=== PATIENT | male | born 1945 | race Two or more races ===

== ENCOUNTER 2017-08-07 11:58 | Inpatient (IN) | payer MEDICARE, OTHER ==
[~2017-08-07] VITALS: Ht 165.1 cm; Wt 54.9 kg
[~2017-08-07 11:58] MED LIST: Aspirin PO; CLOP75TA15 PO; SIMV20TA2 PO
--- NOTE | 2017-08-07 12:45 | NUR ---
AAOX3, BIB FAMILY C/O LEFT LOWER EXTREMITY PAIN, 1-3 TOES GANGRENE. RR IS EVEN AND UNLABORED WITH NAD NOTED. SKIN IS WARM AND DRY. AWAITING MD FOR EVAL.
[2017-08-07] MEDS ORDERED: VANCOMYCIN 1 GM in IV D5W 250 ML IV ONE (13:00)
[2017-08-07] MEDS ORDERED: ONDANSETRON HCL/PF 4 MG/2 ML VIAL IV ONE (13:00)
[2017-08-07] MEDS ORDERED: IV NS 0.9% 1,000 ML BAG IV ONE (13:00)
[2017-08-07] MEDS ORDERED: MORPHINE SULFATE INJ 2 MG/ML DISP.SYRIN IV ONE (13:00)
[2017-08-07] MEDS ORDERED: PIPERACILLIN /TAZOBACTAM 3.375 G in IV D5W 50 ML IV ONE (13:00)
[2017-08-07 13:17] LABS: BASOPHILS % (AUTO) 0.4 % (0.0-2.0); EOSINOPHILS # (AUTO) 0.1 /CMM (0.0-0.7); EOSINOPHILS % (AUTO) 0.8 % (0.0-6.0); HEMATOCRIT 38 % (39-51); HEMOGLOBIN 12.8 g/dL (13.5-17.5); LYMPHOCYTES # (AUTO) 1.7 /CMM (0.8-4.8); LYMPHOCYTES % (AUTO) 20.9 % (20.0-44.0); MEAN CORPUSCULAR HEMOGLOBIN 31 PG (26.0-33.0); MEAN CORPUSCULAR HGB CONC 34 g/dl (31.0-36.0); MEAN CORPUSCULAR VOLUME 92 fL (80-96); MONOCYTES # (AUTO) 0.5 /CMM (0.1-1.30); NEUTROPHILS # (AUTO) 5.8 /CMM (1.8-8.9); NEUTROPHILS % (AUTO) 71.9 % (43.0-81.0); PLATELET COUNT (AUTO) 184 /CMM (150-450); RDW COEFFICIENT OF VARIATION 13.3 (11.5-15.0); WHITE BLOOD COUNT (AUTO) 8.1 K/uL (4.3-11.0)
[2017-08-07 13:35] LABS: ALBUMIN 2.7 g/dL (3.4-5.0); BILIRUBIN,DIRECT 0.1 mg/dL (0.0-0.2); BILIRUBIN,TOTAL 0.4 mg/dL (0.2-1.0); TOTAL PROTEIN, SERUM 7.2 g/dL (6.4-8.2)
[2017-08-07 13:37] LABS: CALCIUM, SERUM 8.8 mg/dL (8.5-10.1); CARBON DIOXIDE 28 mmol/L (21-32); CHLORIDE 98 mmol/L (98-107); CREATININE 1.4 mg/dL (0.6-1.3); POTASSIUM 4.8 mmol/L (3.5-5.1); SODIUM SERUM 134 mmol/L (136-145); UREA NITROGEN, BLOOD 34 mg/dL (7-18)
[2017-08-07] MEDS ORDERED: MORPHINE SULFATE INJ 4 MG/ML DISP.SYRIN ONE (13:39)
[2017-08-07] MEDS ORDERED: ONDANSETRON HCL/PF 4 MG/2 ML VIAL ONE (13:39)
[2017-08-07] MEDS ORDERED: INSU10VI3 SQ ×2 (13:45)
[2017-08-07] MEDS ORDERED: ERGO500014 PO (13:45)
[2017-08-07] MEDS ORDERED: ACET-2605 PO (13:45)
[2017-08-07] MEDS ORDERED: ASPI-992 PO (13:45)
--- NOTE | 2017-08-07 13:45 | NUR ---
CALLED [employer] TECHNOLOGIES MANAGER WATER WAS PAGED.
[2017-08-07 13:48] LABS: INR 0.98 (0.87-1.13)
--- NOTE | 2017-08-07 14:00 | NUR ---
DR HUNTLEY DOESN'T WANT TO ORDER BLOOD DRAW FOR BLOOD CULTURE PRIOR TO ANTIBIOTIC ADMINISTRATION.
[2017-08-07 14:12] LABS: GLUCOSE 584 mg/dL (74-106)
[2017-08-07] MEDS ORDERED: INSULIN REGULAR, HUMAN 100 UNIT/ML 10 ML VIAL IV ONE (14:30)
[2017-08-07] MEDS ORDERED: INSULIN REGULAR, HUMAN 100 UNIT/ML 10 ML VIAL ONE (14:35)
--- NOTE | 2017-08-07 14:46 | NUR ---
REPORT GIVEN TO JOSE PARK FOR ELIDIA MS [id number]
[2017-08-07] MEDS ORDERED: ZOLPIDEM TARTRATE 5 MG TABLET PO PRN (15:30)
[2017-08-07] MEDS ORDERED: DEXTROSE 50%-WATER 50 ML DISP.SYRIN IV PRN (15:30)
[2017-08-07] MEDS ORDERED: MAGNESIUM HYDROXIDE 30 ML UDC PO PRN (15:30)
[2017-08-07] MEDS ORDERED: *INSULIN REGULAR(HUMULIN R)HUM 100 UNIT/ML VIAL SQ PRN (15:30)
[2017-08-07] MEDS ORDERED: MAG HYDROX/AL HYDROX/SIMETH 30 ML UDC PO PRN (15:30)
[2017-08-07] MEDS ORDERED: ONDANSETRON HCL/PF 4 MG/2 ML VIAL IVP PRN (15:30)
[2017-08-07] MEDS ORDERED: Z GUARD REMEDY 2 OZ OINT TP PRN (15:30)
--- NOTE | 2017-08-07 15:30 | NUR ---
MS/RN OPENING NOTE. PATIENT IN BED AWAKE. ALERT AND ORIENTED X4. DENIES SOB, PAIN AT THIS TIME. BREATHING REGULAR AND UNLABORED. IN NO APPARENT DISTRESS. SKIN ASSESSMENT DONE AND PICTURES TAKEN. BED LOW AND LOCKED. SIDE RAILS UP X3. CALL LIGHT WITHIN REACH. WILL CONTINUE TO MONITOR.
[2017-08-07 16:00] VITALS: BP 174/81
[2017-08-07] MEDS ORDERED: ERGOCALCIFEROL (VITAMIN D 2) 50,000 UNIT CAPSULE PO SCH (16:00)
[2017-08-07] MEDS: HYDROCODONE/APAP 5/325MG 1 EACH TABLET PO PRN (17:07)
[2017-08-07] MEDS: BLOOD SUGAR DIAGNOSTIC 1 EACH STRIP IN SCH ×3 (17:08→22:13)
[2017-08-07] MEDS: ASPIRIN 325 MG TABLET PO SCH (17:08)
--- NOTE | 2017-08-07 17:30 | NUR ---
MS/RN NOTE 1730 BLOOD SUGAR CHECK PATIENT REFUSED DUE TO 1710 BLOOD SUGAR CHECK ALREADY DONE AND COVERAGE GIVEN PER ORDER. NO ASE NOTED.
[2017-08-07] MEDS: INSULIN REGULAR, HUMAN 100 UNIT/ML 3 ML VIAL SQ PRN (17:42)
--- NOTE | 2017-08-07 18:19 | NUR ---
MS/RN CLOSING NOTE PATIENT ALERT AND ORIENTED X4. ITALIAN SPEAKER. DENIES SOB AT THIS TIME. RESPIRATION REGULAR AND UNLABORED. DENIES PAIN AT THIS TIME. PAIN MEDICATION GIVEN ORDERED AND THE PATIENT VERBALIZED THE PAIN MEDICATION BEING EFFECTIVE. ZAHRA Uribe 20 PATENT. BED LOW AND LOCKED. SIDE RAILS UP X2. CALL LIGHT WITHIN REACH. WILL ENDORSE TO CUSTODIAN ATHLETIC EQUIPMENT.
[2017-08-07] MEDS: IV NS 0.9% 1,000 ML IV PRN (19:13)
--- NOTE | 2017-08-07 19:35 | NUR ---
MS RN OPENING NOTES RECEIVED PATIENT RESTING IN BED. BARBADIAN SPEAKING, A & O X 4. NO C/O PAIN, NO SOB, NO ACUTE DISTRESS NOTED @ THIS TIME. CONTINENT OF B & BM, USES BSC. DRESSING INTACT TO LEFT FOOT, NO DRAINAGE NOTED. IV ACCESS TO RAC, INTACT PATENT, RUNNING WITH NS @ 75 ML/HR. ON CCHO DIET, TOLERATING WELL. BED IN LOW LOCKED POSITION. CALL LIGHT WITHIN REACH. WILL CONTINUE TO MONITOR CLOSELY.
[2017-08-07] MEDS ORDERED: FEE PK DOSING 1 MIN EA MC ONE (19:44)
[2017-08-07 20:00] VITALS: BP 151/62
[2017-08-07] MEDS: INSULN 70/30 ASP+PRT/ASP MIX 100 UNIT/ML CARTRIDGE SQ SCH (20:00)
[2017-08-07] MEDS: CEFTRIAXONE 1 G in IV NS 0.9% 50 ML IV SCH (20:57)
[2017-08-07] MEDS: ACETAMINOPHEN 325 MG TABLET PO PRN (21:01)
--- NOTE | 2017-08-07 21:01 | NUR ---
PRN TYLENOL GIVEN PATIENT C/O LEFT LOWER EXTREMITY PAIN 08/15, SEEN BY POWER PLANT INSTALLER WITH NEW WOUND TREATMENT ORDER. PRN TYLENOL GIVEN, WILL REASSESS FOR THE EFFECTIVENESS.
--- NOTE | 2017-08-07 21:07 | NUR ---
HELD SCHEDULED INSULIN PATIENT'S BS LEVEL NOTED TO BE 59MG/DL, HELD INSULIN, ORANGE JUICE GIVEN. MD MADE AWARE. WILL RECHECK THE BS LEVEL.
--- NOTE | 2017-08-07 21:35 | NUR ---
RECHECKED BS LEVEL BS LEVEL WAS RECHECKED, NOTED TO BE 104MG/DL. PT IS A & O X 4, NO COMPLICATIONS NOTED. CONTINUING TO MONITOR.
[2017-08-08] MEDS ORDERED: VANCOMYCIN 500 MG in IV D5W 100 ML IV SCH (03:00)
--- NOTE | 2017-08-08 06:22 | NUR ---
MS RN CLOSING NOTES RECEIVED SLEEPING IN BED. YORUBA SPEAKING, A & O X 4. NO C/O PAIN, NO SOB, NO ACUTE DISTRESS NOTED @ THIS TIME. CONTINENT OF B & BM, USES BSC/URINAL. SEEN BY WHARF LABOURER @ NIGHT WITH NEW ORDER. DRESSING INTACT TO LEFT FOOT, NO DRAINAGE NOTED. IV ACCESS TO RAC, INTACT PATENT, RUNNING WITH NS @ 75 ML/HR. ALL NEEDS MET. BED IN LOW LOCKED POSITION. CALL LIGHT WITHIN REACH. WILL ENDORSE TO AM RN FOR CONTINUITY OF CARE.
[2017-08-08] MEDS: BLOOD SUGAR DIAGNOSTIC 1 EACH STRIP IN SCH ×4 (06:37→21:52)
[2017-08-08] MEDS: IV NS 0.9% 1,000 ML IV PRN ×2 (06:37→22:12)
[2017-08-08 06:54] LABS: BASOPHILS % (AUTO) 0.4 % (0.0-2.0); EOSINOPHILS # (AUTO) 0.2 /CMM (0.0-0.7); EOSINOPHILS % (AUTO) 2.7 % (0.0-6.0); HEMATOCRIT 34 % (39-51); HEMOGLOBIN 11.8 g/dL (13.5-17.5); LYMPHOCYTES # (AUTO) 1.9 /CMM (0.8-4.8); LYMPHOCYTES % (AUTO) 26.1 % (20.0-44.0); MEAN CORPUSCULAR HEMOGLOBIN 32 PG (26.0-33.0); MEAN CORPUSCULAR HGB CONC 35 g/dl (31.0-36.0); MEAN CORPUSCULAR VOLUME 91 fL (80-96); MONOCYTES # (AUTO) 0.5 /CMM (0.1-1.30); MONOCYTES % (AUTO) 6.8 % (2.0-12.0); NEUTROPHILS # (AUTO) 4.7 /CMM (1.8-8.9); PLATELET COUNT (AUTO) 147 /CMM (150-450); RDW COEFFICIENT OF VARIATION 13.9 (11.5-15.0); RED BLOOD CELL COUNT(AUTO) 3.71 MIL/uL (4.5-6.0); WHITE BLOOD COUNT (AUTO) 7.4 K/uL (4.3-11.0)
[2017-08-08] MEDS: INSULIN REGULAR, HUMAN 100 UNIT/ML 3 ML VIAL SQ PRN ×2 (07:05→12:13)
[2017-08-08 07:18] LABS: ALANINE AMINOTRANSFERASE 88 U/L (12-78); ALBUMIN 2.4 g/dL (3.4-5.0); ALKALINE PHOSPHATASE 79 U/L (46-116); ASPARTATE AMINOTRANSFERASE 68 U/L (15-37); BILIRUBIN,TOTAL 0.5 mg/dL (0.2-1.0); CALCIUM, SERUM 7.9 mg/dL (8.5-10.1); CARBON DIOXIDE 25 mmol/L (21-32); CHLORIDE 102 mmol/L (98-107); CREATININE 0.9 mg/dL (0.6-1.3); GLUCOSE 209 mg/dL (74-106); MAGNESIUM 1.4 mg/dL (1.8-2.4); PHOSPHORUS 3.4 mg/dL (2.5-4.9); SODIUM SERUM 135 mmol/L (136-145); TOTAL PROTEIN, SERUM 6.5 g/dL (6.4-8.2); UREA NITROGEN, BLOOD 19 mg/dL (7-18)
[2017-08-08 07:20] LABS: CHOLESTEROL 77 mg/dL (<200); HDL CHOLESTEROL 27 mg/dL (40-60); LDL 48 mg/dL (0-99); TRIGLYCERIDES 51 mg/dL (30-150)
--- NOTE | 2017-08-08 07:46 | NUR ---
RN OPENING NOTES RECEIVED PT. A/OX4, PT IS SLOVENIAN SPEAKING ONLY. NO S/S OF RESP DISTRESS OR SOB. PT HAS C/O PAIN 12/15, WILL ADDRESS PHARMACOLOGICALLY. PT TO HAVE WOUND CARE CONSULT FOR LEFT FOOT GANGRENE. IV ACCESS LOCATED ON RIGHT AC 20G INFUSING NS AT 75 ML/HR. SAFETY MEASURES IN PLACE, CALL LIGHT WITHIN REACH. WILL CONTINUE TO MONITOR.
[2017-08-08 08:00] VITALS: BP 188/89
[2017-08-08] MEDS: HYDROCODONE/APAP 5/325MG 1 EACH TABLET PO PRN ×2 (08:06→16:06)
[2017-08-08] MEDS: ASPIRIN 325 MG TABLET PO SCH (08:06)
[2017-08-08] MEDS: INSULN 70/30 ASP+PRT/ASP MIX 100 UNIT/ML CARTRIDGE SQ SCH ×2 (08:11→17:05)
[2017-08-08] MEDS: AMLODIPINE BESYLATE 10 MG TABLET PO SCH (10:41)
[2017-08-08] MEDS: Magnesium 1GM/D5W 100ML PREMIX 100 ML IV SCH ×4 (12:38→16:27)
--- NOTE | 2017-08-08 13:50 | NUR ---
RN NOTES RIGHT AC IV ACCESS PULLED OUT. NEW ACCESS STARTED ON LEFT FA, 22G.
[2017-08-08] MEDS: VANCOMYCIN 0.75 GM in IV D5W 250 ML IV SCH (15:47)
--- NOTE | 2017-08-08 17:45 | NUR ---
RN NOTES REGULAR INSULIN HELD, DUE TO HYPOGLYCEMIA EXPERIENCED AT NIGHT ON 08/07/17. SCHEDULED NOVOLOG 70/30 STILL GIVEN.
--- NOTE | 2017-08-08 18:34 | NUR ---
RN CLOSING NOTE PT IN BED RESTING. NO S/S OF RESP DISTRESS OR SOB. NO C/O PAIN AT THIS TIME. MAGNESIUM REPLACED VIA X3 BAGS IVPB. LEFT FOOT DRESSING REINFORCED, DRESSING REMAINS UNSOILED. ALL PT NEEDS ANTICIPATED AND MET, SAFETY MEASURES IN PLACE, CALL LIGHT WITHIN REACH. WILL ENDORSE TO FORENSIC SOCIAL WORKER FOR ELIDIA.
--- NOTE | 2017-08-08 19:12 | NUR ---
MS RN OPENING NOTES RECEIVED PATIENT RESTING IN BED WITH EYES CLOSED. SLOVAK SPEAKING, A & O X 4. NO C/O PAIN, NO SOB, NO ACUTE DISTRESS NOTED @ THIS TIME. CONTINENT OF B & BM, USES BSC/URINAL. DRESSING INTACT TO LEFT FOOT & RIGHT FOOT.NO DRAINAGE NOTED. IV ACCESS TO LFA, INTACT PATENT, RUNNING WITH NS @ 75 ML/HR. ON CCHO DIET, TOLERATING WELL. WILL MONITOR CLOSELY FOR HIGH BP SINCE PT HAD HIGH BP IN AM SHIFT.BED IN LOW LOCKED POSITION. CALL LIGHT WITHIN REACH. WILL CONTINUE TO MONITOR CLOSELY.
[2017-08-08] MEDS: CEFTRIAXONE 1 G in IV NS 0.9% 50 ML IV SCH (19:35)
[2017-08-08 20:00] VITALS: BP 151/86
[2017-08-08] MEDS: ACETAMINOPHEN 325 MG TABLET PO PRN (20:13)
--- NOTE | 2017-08-08 20:13 | NUR ---
PRN TYLENOL GIVEN PATIENT C/O LEFT LOWER EXTREMITY MILD PAIN 3/10, PRN TYLENOL GIVEN, WILL REASSESS FOR THE EFFECTIVENESS.
[2017-08-09] MEDS: VANCOMYCIN 0.75 GM in IV D5W 250 ML IV SCH ×2 (03:20→14:27)
[2017-08-09 06:39] LABS: CALCIUM, SERUM 8.2 mg/dL (8.5-10.1); CARBON DIOXIDE 28 mmol/L (21-32); CHLORIDE 107 mmol/L (98-107); CREATININE 0.9 mg/dL (0.6-1.3); GLUCOSE 157 mg/dL (74-106); MAGNESIUM 1.8 mg/dL (1.8-2.4); POTASSIUM 4.7 mmol/L (3.5-5.1); SODIUM SERUM 144 mmol/L (136-145); UREA NITROGEN, BLOOD 12 mg/dL (7-18)
[2017-08-09] MEDS: HYDROCODONE/APAP 5/325MG 1 EACH TABLET PO PRN ×2 (06:41→20:37)
--- NOTE | 2017-08-09 06:41 | NUR ---
MS RN CLOSING NOTES PT SLEPT WELL @ NIGHT, A & O X 4. HAD C/O PAIN TO LEFT LEG, PRN NORCO GIVEN. NO SOB, NO ACUTE DISTRESS NOTED @ THIS TIME. CONTINENT OF B & BM, USES BSC/URINAL. DRESSING INTACT TO LEFT FOOT, NO DRAINAGE NOTED. IV ACCESS TO RAC, INTACT PATENT, RUNNING WITH NS @ 75 ML/HR. ALL NEEDS MET. BED IN LOW LOCKED POSITION. CALL LIGHT WITHIN REACH. WILL ENDORSE TO AM RN FOR CONTINUITY OF CARE.
[2017-08-09] MEDS: BLOOD SUGAR DIAGNOSTIC 1 EACH STRIP IN SCH ×4 (07:30→20:38)
--- NOTE | 2017-08-09 07:54 | NUR ---
RN OPENING NOTES RECEIVED PT. PT STABLE AND SLEEPING IN BED. NO S/S OF RESP DISTRESS OR SOB. BILATERAL FEET DRESSINGS INTACT AND UNSOILED. IV ACCESS LOCATED ON LEFT FA 22G INFUSING NS AT 75 ML/HR. AM INSULIN COVERAGE HELD, PT HAS NOT EATEN MEALS OR CONSUMED FLUIDS. SAFETY MEASURES IN PLACE, CALL LIGHT WITHIN REACH. WILL CONTINUE TO MONITOR.
[2017-08-09 08:17] VITALS: BP 163/81
[2017-08-09] MEDS: ASPIRIN 325 MG TABLET PO SCH (08:29)
[2017-08-09] MEDS: AMLODIPINE BESYLATE 10 MG TABLET PO SCH (08:29)
[2017-08-09] MEDS: INSULN 70/30 ASP+PRT/ASP MIX 100 UNIT/ML CARTRIDGE SQ SCH ×2 (09:00→17:04)
[2017-08-09] MEDS: INSULIN REGULAR, HUMAN 100 UNIT/ML 3 ML VIAL SQ PRN ×3 (12:39→20:52)
[2017-08-09 16:04] VITALS: BP 115/64
--- NOTE | 2017-08-09 19:16 | NUR ---
RN CLOSING NOTES PT IN BED RESTING. NO S/S OF RESP DISTRESS OR SOB. ALL PT NEEDS ANTICIPATED AND MET. SAFETY MEASURES IN PLACE CALL LIGHT WITHIN REACH. WILL ENDORSE TO ICE CREAM SCOOPER FOR ELIDIA.
--- NOTE | 2017-08-09 19:30 | NUR ---
MS RN NOTE RECEIVED PT. PT STABLE AND SLEEPING IN BED. NO S/S OF RESP DISTRESS OR SOB. BILATERAL FEET DRESSINGS INTACT AND UNSOILED. IV ACCESS LOCATED ON LEFT FA 22G INFUSING NS AT 75 ML/HR. SAFETY MEASURES IN PLACE, CALL LIGHT WITHIN REACH. WILL CONTINUE TO MONITOR.
[2017-08-09 20:00] VITALS: BP 154/89
[2017-08-09] MEDS: CEFTRIAXONE 1 G in IV NS 0.9% 50 ML IV SCH (20:37)
[2017-08-09 22:00] VITALS: BP 154/89
[2017-08-10] MEDS: VANCOMYCIN 500 MG in IV NS 0.9% 100 ML IV SCH ×2 (03:00→15:21)
--- NOTE | 2017-08-10 04:29 | NUR ---
MS RN NOTE VANCO TROUGH 22. NOTIFIED ON-CALL PHARMACIST, BANDAR. PER BANDAR, HOLD VANCO DOSE AT THIS TIME. WILL CONTINUE TO MONITOR.
--- NOTE | 2017-08-10 06:54 | NUR ---
ms rn note Patient stable . Wound care provided. Pictures taken and placed in chart. Blood sugar 160. Sliding scale given as ordered.Will endorse to day shift for freddy.
[2017-08-10] MEDS: INSULIN REGULAR, HUMAN 100 UNIT/ML 3 ML VIAL SQ PRN ×3 (07:08→18:21)
[2017-08-10] MEDS: BLOOD SUGAR DIAGNOSTIC 1 EACH STRIP IN SCH ×3 (07:09→18:12)
--- NOTE | 2017-08-10 07:17 | NUR ---
MS RN OPENING NOTES RECEIVED PT FROM NIGHTSHIFT NURSE IN STABLE CONDITION. PT IS A/O X4. NO SOB OR SIGNS OF DISTRESS NOTED. BREATHING IS EVEN AND UNLABORED. HE ADMITS TO MINIMAL PAIN AT THIS TIME, BUT STATES HE DOES NOT NEED PAIN MEDICATION. WOUND DRESSING CLEAN DRY, AND INTACT. IV NOTED TO BE PATENT AND INTACT. NO REDNESS OR SIGNS OF INFILTRATION NOTED. BED IN LOW LOCKED POSITION, SIDE RAILS UP X2, CALL LIGHT WITHIN REACH. WILL CONTINUE TO MONITOR
[2017-08-10 07:59] LABS: CALCIUM, SERUM 8.7 mg/dL (8.5-10.1); CARBON DIOXIDE 26 mmol/L (21-32); CHLORIDE 100 mmol/L (98-107); CREATININE 0.9 mg/dL (0.6-1.3); GLUCOSE 181 mg/dL (74-106); POTASSIUM 4.7 mmol/L (3.5-5.1); SODIUM SERUM 136 mmol/L (136-145); UREA NITROGEN, BLOOD 12 mg/dL (7-18)
[2017-08-10 08:00] VITALS: BP 159/80
[2017-08-10] MEDS: HYDROCODONE/APAP 5/325MG 1 EACH TABLET PO PRN ×2 (08:40→18:12)
[2017-08-10] MEDS: ASPIRIN 325 MG TABLET PO SCH (08:41)
[2017-08-10] MEDS: AMLODIPINE BESYLATE 10 MG TABLET PO SCH (08:41)
[2017-08-10] MEDS: INSULN 70/30 ASP+PRT/ASP MIX 100 UNIT/ML CARTRIDGE SQ SCH ×2 (09:36→18:16)
--- NOTE | 2017-08-10 12:20 | NUR ---
WOUND CARE CONSULT: PT FOLLOWED BY PODIATRY FOR LOWER EXTREMITIES. RT FOOT DRESSING DRY AND INTACT. DRY GANGRENE NOTED TO LEFT TOES, PRESENT ON ADMISSION. DEFER TO PODIATRY. PT ABLE TO TURN SELF IN BED. WILL SEE PRN. DISCUSSED SKIN PROTECTION WITH NURSING STAFF. WILL SEE PRN. MD IN AGREEMENT WITH PLAN OF CARE.
[2017-08-10 16:00] VITALS: BP 130/67
--- NOTE | 2017-08-10 19:30 | NUR ---
ms rn note Patient discharged home with in vehicle. Patient stable. Dressing clean, dry and intact. IV removed, ID band removed. All discharge instructions explained to patient and to . Escorted to care in wheelchair.
--- NOTE | 2017-08-10 19:30 | NUR ---
MS RN OPENING NOTES RECEIVED PT FROM IN STABLE CONDITION. PT IS A/O X4. NO SOB OR SIGNS OF DISTRESS NOTED. BREATHING IS EVEN AND UNLABORED. WOUND DRESSING CLEAN DRY, AND INTACT. IV NOTED TO BE PATENT AND INTACT. NO REDNESS OR SIGNS OF INFILTRATION NOTED. BED IN LOW LOCKED POSITION, SIDE RAILS UP X2, CALL LIGHT WITHIN REACH. WILL CONTINUE TO MONITOR
--- NOTE | 2017-08-10 19:31 | NUR ---
MS RN CLOSING NOTES PT REMAINS STABLE. DISCHARGE INSTRUCTIONS PROVIDED TO PT ALONG WITH INFORMATION TO CONTACT DR. BROWNLEE TOMORROW FOR ANGIOGRAM. PT VERBALIZED UNDERSTANDING OF DISCHARGE INSTRUCTIONS. PT STATES THAT HIS IS ON HER WAY TO BRING HIM CLOTHES AND TAKE HIM HIM. WILL ENDORSE TO NIGHTSHIFT NURSE TO COMPLETE DISCHARGE AND REMOVE IV. ALL NEEDS WERE MET DURING SHIFT AND ORDERS CARRIED OUT ACCORDINGLY.
== END 2017-08-10 22:45 | disposition home or self-care (01) | DRG 299 ==
LOC: ER 12:00 → MED 14:48
PROVIDERS: ADMIT Internal Medicine; ATTEND Internal Medicine
DX: E11.52 Type 2 diabetes mellitus with diabetic peripheral angiopathy with gangrene (principal); N17.0 Acute kidney failure with tubular necrosis; I70.262 Atherosclerosis of native arteries of extremities with gangrene, left leg; L97.429 Non-pressure chronic ulcer of left heel and midfoot with unspecified severity; Z86.73 Personal history of transient ischemic attack (TIA), and cerebral infarction without residual deficits; E11.42 Type 2 diabetes mellitus with diabetic polyneuropathy; Z90.49 Acquired absence of other specified parts of digestive tract; Z89.431 Acquired absence of right foot; Z79.82 Long term (current) use of aspirin; I10 Essential (primary) hypertension; Z79.4 Long term (current) use of insulin; Z79.899 Other long term (current) drug therapy; Z98.890 Other specified postprocedural states
CPT/HCPCS: 36415; 71045-TC; 73630-TC; 80048-TC; 80053-TC; 80061-TC; 80076-TC; 80202-TC; 82947-TC; 82962-TC; 83735-TC; 84100-TC; 85025-TC; 85730-TC; 87081-TC; 93926-TC; A4216; A4606; A6402; J0696; J1815; J2270; J2405; J2543; J3370; J3475; J7030; J7060; Z7610